=== PATIENT | female | born 1935 | race Two or more races ===

== ENCOUNTER 2022-07-18 09:58 | Inpatient (IN) | payer SELFPAY ==
[~2022-07-18] VITALS: Ht 155 cm; Wt 70.0 kg
[2022-07-18] MEDS ORDERED: AMITRIPTYLINE HCL 25 MG TAB PO SCH (22:00)
== END 2022-07-18 12:49 | disposition home or self-care (01) | DRG 192 ==
LOC: DOU IN ADS 09:58
PROVIDERS: ADMIT Internal Medicine Geriatric Medicine; ATTEND Internal Medicine Geriatric Medicine
DX: J44.9 Chronic obstructive pulmonary disease, unspecified (principal)
CPT/HCPCS: 36415; 82565; G0378